=== PATIENT | male | born 1985 | race Two or more races ===

== ENCOUNTER 2022-02-26 05:45 | Day surgery (SDC) | payer OTHER ==
[~2022-02-26] VITALS: Ht 175.3 cm; Wt 99.8 kg
[~2022-02-26 05:45] MED LIST: BENT PO; PEPCID PO; PROTONIX40 MG PO
== END 2022-02-26 14:25 | disposition home or self-care (01) ==
LOC: CIR.AMB 05:45
PROVIDERS: ATTEND Colon & Rectal Surgery
DX: K64.1 Second degree hemorrhoids (principal); Z20.822 Contact with and (suspected) exposure to COVID-19; Z91.013 Allergy to seafood; K21.9 Gastro-esophageal reflux disease without esophagitis